=== PATIENT | male | born 1960 | race Caucasian/White ===

== ENCOUNTER → 2018-06-22 09:27 | Outpatient (CLI) | payer OTHER ==
[2018-06-22 10:24] LABS: CREATININE - SERUM 0.8 mg/dL (0.6-1.3)
== END | disposition home or self-care (01) ==
LOC: D.LAB 09:27
PROVIDERS: Pediatrics
DX: Z02.71 Encounter for disability determination (principal)

== ENCOUNTER 2021-04-13 07:55 | Day surgery (SDC) | payer MEDICARE, MEDICAID ==
[~2021-04-13] VITALS: Ht 170.2 cm; Wt 97.5 kg
[~2021-04-13 07:55] MED LIST: GABAPENTIN300 MG; HYDROCODON-ACET15 ML; LANTUS SOL100 UNIT/2; LIPITOR80 MG; NOVOLOG100 UNIT/1; PLAVIX75 MG; TOPAMAX50 MG; TYLENOL #4 W/CO1 TAB; ZANAFLEX4 MG; ZESTRIL10 MG; ZOFRAN4 MG
[2021-04-13 08:46] LABS: BASOPHILS 0.3 % (0-2); EOSINOPHILS 3.1 % (0-7); HEMATOCRIT 44.8 % (42.0-54.0); HEMOGLOBIN 14.7 g/dL (13.5-17.5); IMMATURE GRANULOCYTES 0.2 % (0-5); LYMPHOCYTE ABS# 4.28 10x3/uL (1.32-3.57); LYMPHOCYTES 36.5 % (15-50); MCH 30.1 pg (26.0-34.0); MCHC 32.8 g/dL (31.0-37.0); MCV 91.8 fL (80.0-100.0); MEAN PLATELET VOLUME 10.3 fL (7.4-10.4); MONOCYTES 6.1 % (2-11); NEUTROPHIL ABS# 6.32 10x3/uL (1.78-5.38); NEUTROPHILS 53.8 % (40-80); PLATELET COUNT 248 10x3/uL (130-400); RBC 4.88 10x6/uL (4.20-6.10); RDW 13.1 % (11.5-14.5); WBC 11.7 10x3/uL (4.8-10.8)
[2021-04-13 08:50] LABS: CALC OSMOLALITY 285 mosm/kg (275-300); CALCIUM 9.3 mg/dL (8.5-10.1); CARBON DIOXIDE 25.2 mmol/L (21.0-32.0); CHLORIDE - SERUM 105 mmol/L (98-107); POTASSIUM - SERUM 4.2 mmol/L (3.5-5.1); SODIUM 140 mmol/L (136-145); UREA NITROGEN 15 mg/dL (7-18); eGFR NON AFRICAN AMERICAN 80 mL/min (90-120)
[2021-04-13 08:53] LABS: GLUCOSE 198 mg/dL (74-106)
[2021-04-13 10:03] VITALS: BP 116/75; Ht 170.2 cm; Wt 97.5 kg
--- NOTE | 2021-04-15 13:54 | OP ---
PATIENT NAME: TAMERA BOOKER MEDICAL RECORD: [id number] :56 LOCATION:[facility] ADMISSION DATE: SURGEON: KOLTON DESHPANDE DO DATE OF OPERATION: 04/13/2021 PROCEDURE PERFORMED: Right shoulder arthroscopy with manipulation under anesthesia, lysis of adhesions, biceps tenodesis, distal clavicle excision and subacromial decompression. PREOPERATIVE DIAGNOSES: Right shoulder superior labrum anterior and posterior tear, adhesive capsulitis, acromioclavicular joint arthritis and subacromial impingement. POSTOPERATIVE DIAGNOSES: Right shoulder superior labrum anterior and posterior tear, adhesive capsulitis, acromioclavicular joint arthritis and subacromial impingement. INDICATIONS: Mr. Booker is a 60-year-old male who has had right shoulder pain for quite some time. He has tried all manner of nonoperative treatment. He had an MRI showing the SLAP tear and possible rotator cuff tear. Since been seen in the office, he developed less and less motion, developed adhesive capsulitis. He can only abduct to approximately 50 degrees and forward flex to about 80. Due to the lack of motion, we decided to do a manipulation under anesthesia and to get his arm moving. I told I would do biceps tenodesis and the other things mentioned in the operative note. He was okay with risks including infection, bleeding, damage to nerves and vessels, need for further surgery, continued pain, loss of motion of the shoulder, frozen shoulder syndrome and damage to nerves or vessels and even and he signed the consent. SURGEON: Kolton Deshpande DO DESCRIPTION OF PROCEDURE: The patient received a block by anesthesia in the preoperative area, taken to the operative suite, laid in left lateral decubitus position with the right shoulder up. He was sedated and LMA was placed. The right shoulder was then prepped and draped in sterile fashion. A timeout was performed and everyone was in agreement with correct side, site, patient and procedure. I then began by manipulating the shoulder and getting a full range of motion in abduction, forward flexion, internal rotation, external rotation at 90 and then inserted an 18-gauge spinal needle through the posterior portion of the shoulder and inflating the shoulder joint with 60 mL normal saline. I then made an incision with an 11-blade scalpel, entered the trocar into the joint and made an anterior portal through the use of excessive amount of adhesions in the rotator interval and then brought in the burner. The long head of the biceps tendon was torn as well as we had a SLAP tear. I then brought in a burner and performed a biceps tenotomy at that time. Inspection of the rotator cuff, subscapularis, supraspinatus, and infraspinatus were all in good repair. The cartilage was in good repair as well. I then used the burner to lyse the adhesions in the rotator interval, subacromial space, established a lateral portal using a spinal needle 11-blade scalpel, performed a subacromial decompression, acromioplasty and then removed the bursa inspected the bursal side of the rotator cuff did not see any tears. We then went through the anterior portal, did a distal clavicle excision, removing a portion of it to open up the AC joint, approximately 7 mm. I then went to the anterior humerus, made a small incision and dissected carefully off the long head biceps tendon OPERATIVE REPORT [id number] TAMERA BOOKER and then put a unicortical hole and then put a 2.9 Jugger[employer] biceps tenodesis loop in the humerus. I then put the long head biceps tendon through the loop and cinched it down to the humerus cut the excess suture and made 2 passes through the long head of the biceps tendon with a suture and tied it down and cut the excess tendon and sutured it at that time. Juan Daniel Loyd, certified surgical geriatric assistant then closed the open site with 2-0 Vicryl in interrupted fashion, 4-0 Monocryl around the skin, and 4-0 Monocryl inverted fashion on the portal sites. He was placed with Dermabond glue along the incisions and dressed with Telfa and Tegaderm. Awakened and taken to recovery in stable condition. BLOOD LOSS: Minimal. COMPLICATIONS: None. TRANSINT:[id number] Voice Confirmation ID: [id number] DOCUMENT ID: [id number] KOLTON DESHPANDE DO at 1354 CC: [id number] DICTATION DATE: 04/13/21 1446 CATERPILLAR MECHANIC: 04/14/21 0044 [facility] 04/13/21 [facility] [address] [id number]
== END 2021-04-13 15:15 | disposition home or self-care (01) ==
LOC: D.OPS 07:55
PROVIDERS: Anesthesiology; ATTEND Orthopaedic Surgery
DX: M25.511 Pain in right shoulder (principal); M75.01 Adhesive capsulitis of right shoulder; M13.811 Other specified arthritis, right shoulder; M75.41 Impingement syndrome of right shoulder; M75.101 Unspecified rotator cuff tear or rupture of right shoulder, not specified as traumatic